=== PATIENT | female | born 1960 ===

== ENCOUNTER 2023-07-31 14:32 | Outpatient (CLI) | payer OTHER, SELFPAY ==
--- NOTE | 2023-07-31 15:15 | US_ITS ---
WS: [id number] THYROID ULTRASOUND HISTORY: thyroid nodule COMPARISON: None available. Right lobe: 2.0 cm x 1.8 cm x 4.3 cm (w x ap x l). Volume: 8.2 cm3. Normal sized gland. There is a mixed but predominantly hyperechoic nodule in the mid gland measuring 7 x 6 x 8 mm. No echogenic foci. Left lobe: 1.6 cm x 1.5 cm x 3.9 cm (w x ap x l). Volume: 4.8 cm3. Normal sized gland. There is a very hypoechoic nodule in the inferior pole measuring 9 x 5 x 8 mm. Mi ld increased vascularity. No echogenic foci. Isthmus: 0.4 cm. IMPRESSION: 1. TI-RADS 4; hypoechoic nodule lower pole LEFT thyroid. Recommend continued yearly ultrasound evalua tion. If this nodule increases greater than 1.5 cm in diameter biopsy should be obtained. 2. TI-RADS 3; hyperechoic nodule mid RIGHT thyroid. Recommend ultrasound evaluation.
== END 2023-07-31 14:33 | disposition home or self-care (01) ==
LOC: RAD 14:36
PROVIDERS: Visit Provider Internal Medicine
DX: E04.1 Nontoxic single thyroid nodule (principal)
CPT/HCPCS: 76536